=== PATIENT | female | born 1990 | race Caucasian/White ===

== ENCOUNTER 2016-07-19 19:35 | Emergency (ER) | payer BC ==
[2016-07-19] MEDS ORDERED: Sodium Chloride 0.9% 10 ML Syringe FLUSH PRN (19:40)
[2016-07-19 19:47] VITALS: BP 108/89
--- NOTE | 2016-07-19 20:03 | EDM.PDOC ---
ED HPI ENT - General Chief Complaint: ENT Problem Stated Complaint: TONSIL SURGERY/BLEEDING Time Seen by Provider: 07/19/16 19:39 Source of Information: Reports: Patient - History of Present Illness INITIAL COMMENTS - FREE TEXT/NARRATIVE: Patient is a 26-year-old female with history of status post tonsillectomy one week ago who presents to the ED complaining of bleeding from the posterior pharynx. States bleeding started just prior to arrival. She has filled up 3/4 12 oz styrofoam cup with giovani blood. Patient has had no complications post surgery up until today. She denies any additional past medical history including bleeding disorders. She has been utilizing hydrocodone and ibuprofen for pain. Surgery was performed by a ENT specialists in [facility]. She denies any additional complaints. Timing/Duration: Reports: Constant Severity: moderate Location: Reports: throat Quality: Reports: Other (bleeding) Treatments DIRECTOR IT: Reports: Other (see below) (none stated) - Related Data Allergies/ADRs: Allergies Allergy/AdvReac Type Severity Reaction Status Date / Time Penicillins Allergy Hives Verified 07/19/16 19:37 Home Meds: Home Meds . [Unable to Verify Home Med List] 07/19/16 [History] Past Medical History Other HEENT History: chronic sore throats Genitourinary History: Reports: None - Past Surgical History Head Surgeries/Procedures: Reports: None HEENT Surgical History: Reports: Oral surgery, Tonsillectomy Other Female Surgeries/Procedures: dashawn surgery for cosmetic purposes Social & Family History - Family History Family Medical History: Noncontributory - Tobacco Use Smoking Status *Q: Never Smoker Second Hand Smoke Exposure: No - Recreational Drug Use Recreational Drug Use: No ED ROS ENT - Review of Systems Review Of Systems: See Below Constitutional: Reports: decreased appetite. Denies: fever, chills HEENT: Reports: Throat pain, Throat swelling, Other (bleeding from posterior pharynx s/p tonsillectomy) Respiratory: Denies: Shortness of Breath GI/Abdominal: Denies: Nausea, Vomiting ED EXAM, ENT - Physical Exam Exam: See Below Exam Limited By: Other (coughing up blood, no airway compromise) General Appearance: alert, WD/WN, anxious Ears: hearing grossly normal Nose: normal inspection, normal mucousa, no blood Mouth/Throat: Bleeding, Other (unable to visualize posterior pharynx with bleeding present. ) Neck: normal inspection, supple Respiratory/Chest: no respiratory distress, lungs clear, normal breath sounds, no accessory muscle use Cardiovascular: normal peripheral pulses, regular rate, rhythm Neurological: alert, oriented, normal cognition Psychiatric: normal affect, normal mood Skin: Warm, Dry, Intact, Normal color Course - Vital Signs Last Recorded V/S: Last Vital Signs Temp 98.2 F 07/19/16 19:38 Pulse 124 H 07/19/16 19:38 Resp 24 H 07/19/16 19:38 BP 108/89 07/19/16 19:38 Pulse Ox 100 07/19/16 19:38 - Orders/Labs/Meds Orders: Active Orders 24 hr Category Date Time Status Peripheral IV Care [RC] . DIRECTED Care 07/19/16 19:40 Active TYPE AND SCREEN [BBK] Stat Lab 07/19/16 19:50 Received Sodium Chloride 0.9% [Saline Flush] Med 07/19/16 19:40 Active 10 ml FLUSH ASDIRECTED PRN Peripheral IV Insertion Adult [OM.PC] Stat Oth 07/19/16 19:40 Ordered Medication Orders Sodium Chloride (Saline Flush) 10 ml FLUSH ASDIRECTED PRN PRN Reason: Keep Vein Open Last Admin: 07/19/16 20:05 Dose: 10 ml Labs: Laboratory Tests 07/19/16 Range/Units 19:50 WBC 8.15 (3.98-10.04) K/mm3 RBC 4.31 (3.98-5.22) M/mm3 Hgb 12.8 (11.2-15.7) gm/L Hct 38.2 (34.1-44.9) % MCV 88.6 (79.4-94.8) fl MCH 29.7 (25.6-32.2) pg MCHC 33.5 (32.2-35.5) g/dl RDW Std Deviation 40.1 (36.4-46.3) fL Plt Count 248 (182-369) K/mm3 MPV 9.9 (9.4-12.3) fl Neut % (Auto) 56.9 (34.0-71.1) % Lymph % (Auto) 30.7 (19.3-51.7) % [place] % (Auto) 9.8 (4.7-12.5) % Eos % (Auto) 2.1 (0.7-5.8) Baso % (Auto) 0.4 (0.1-1.2) % Neut # (Auto) 4.64 (1.56-6.13) K/mm3 Lymph # (Auto) 2.50 (1.18-3.74) K/mm3 [place] # (Auto) 0.80 H (0.24-0.36) K/mm3 Eos # (Auto) 0.17 (0.04-0.36) K/mm3 Baso # (Auto) 0.03 (0.01-0.08) K/mm3 Meds: Medications Generic Name Dose Route Start Last Admin Trade Name Freq PRN Reason Stop Dose Admin Sodium Chloride 10 ml 07/19/16 19:40 07/19/16 20:05 Saline Flush FLUSH 10 ml ASDIRECTED PRN Administration Keep Vein Open - Re-Assessments/Exams Free Text/Narrative Re-Assessment/Exam: 07/19/16 19:41 patient has had approximately 250 mL of giovani red blood with onset of bleeding. Patient was instructed to utilize suction to clear blood from oral pharynx. Will move patient to trauma room so she can be closely monitored for airway compromise. Ordered IV to be established with CBC and type and screen lab work obtained. 1943 per nursing staff bleeding has decreased. 07/19/16 20:00 Patient moved to trauma room. Bleeding has subsided. She is spitting up clear secretions with intermittent blood tinged present. 07/19/16 21:05 Reassessment, bleeding has resolved. Examination did reveal clot to the left posterior pharynx with no active bleeding present. All other findings consistent with s/p tonsillectomy. Will discharge patient home with instructions as documented. Departure - Departure Time of Disposition: 21:10 Disposition: Home, Self-Care 01 Condition: fair Clinical Impression: S/P tonsillectomy, Hemorrhage following tonsillectomy Forms: ED Department Discharge Additional Instructions: As discussed continue taking oral pain medications as prescribed. Refrain from utilizing ibuprofen for the next 24-48 hours. Continue to drink copious amounts of water. Stating with a soft diet. Do not excessively clear your throat in fear of causing bleeding again. Please call your ENT specialist to discuss recent events and when followup should occur. Return back to the ED if experience any new or worsening symptoms. For constipation take one capful MiraLax every day while taking narcotic pain medications. - My Orders Last 24 Hours: My Active Orders 07/19/16 19:40 Peripheral IV Care [RC] . DIRECTED Sodium Chloride 0.9% [Saline Flush] 10 ml FLUSH ASDIRECTED PRN Peripheral IV Insertion Adult [OM.PC] Stat 07/19/16 19:50 TYPE AND SCREEN [BBK] Stat - Assessment/Plan Last 24 Hours: My Active Orders 07/19/16 19:40 Peripheral IV Care [RC] . DIRECTED Sodium Chloride 0.9% [Saline Flush] 10 ml FLUSH ASDIRECTED PRN Peripheral IV Insertion Adult [OM.PC] Stat 07/19/16 19:50 TYPE AND SCREEN [BBK] Stat
== END 2016-07-19 21:30 | disposition home or self-care (01) ==
LOC: JD.ED 19:35
DX: K91.841 Postprocedural hemorrhage of a digestive system organ or structure following other procedure (principal); Z98.890 Other specified postprocedural states; Z88.0 Allergy status to penicillin
CPT/HCPCS: 36415; 85025; 86850; 86900; 86901; 99284; J7050; 99282

== ENCOUNTER 2016-07-21 07:16 | Emergency (ER) | payer BC ==
--- NOTE | 2016-07-21 07:24 | EDM.PDOC ---
ED HPI ENT - General Chief Complaint: ENT Problem Stated Complaint: VOMITING BLOOD Time Seen by Provider: 07/21/16 07:30 Source of Information: Reports: Patient History Limitations: Reports: No limitations - History of Present Illness INITIAL COMMENTS - FREE TEXT/NARRATIVE: 26 year old female presents to the ED with vomiting of blood pressure red blood mixed with old dark blood. She is tonsillectomy carried out a week ago up in [place]. She presented 2 days ago with the left tonsillar fossa bleed that stopped on its own. At present she is very nauseated and has minimal active bleeding from the left tonsillar area. She is pallid in appearance and quite woozy. Symptom Onset Date: 07/21/16 (Awoke with nausea vomiting of dark old blood and did have some prevent blood as well per oral.) Timing/Duration: Reports: Minutes:, Sudden onset Severity: moderate Location: Reports: mouth Quality: Reports: Same as previous episode Improves with: Reports: None Worsens with: Reports: None Associated Symptoms: Reports: syncope, weakness. Denies: chest pain, cough, sputum, fever/chills, diaphoresis, malaise, loss of appetite, nausea/vomiting Treatments PHOTOGRAPHY AND PRINTS CURATOR: Reports: Other (see below) ( none) - Related Data Allergies/ADRs: Allergies Allergy/AdvReac Type Severity Reaction Status Date / Time Penicillins Allergy Hives Verified 07/21/16 07:27 Home Meds: Home Meds Ondansetron [Zofran ODT] 4 mg PO Q6H #5 tab.dis 07/21/16 [Rx] Past Medical History Other HEENT History: chronic sore throats Genitourinary History: Reports: None - Past Surgical History Head Surgeries/Procedures: Reports: None HEENT Surgical History: Reports: Oral surgery, Tonsillectomy Other Female Surgeries/Procedures: dashawn surgery for cosmetic purposes Social & Family History - Family History Family Medical History: Noncontributory - Tobacco Use Smoking Status *Q: Never Smoker Second Hand Smoke Exposure: No - Recreational Drug Use Recreational Drug Use: No - Living Situation & Occupation Occupation: employed ED ROS ENT - Review of Systems Review Of Systems: See Below Constitutional: Reports: no symptoms, weakness, fatigue, decreased appetite HEENT: Reports: Throat pain ( post tonsillectomy one week ago.) Respiratory: Reports: No Symptoms Cardiovascular: Reports: No symptoms Endocrine: Reports: no symptoms GI/Abdominal: Reports: Hematemesis, Nausea, Vomiting (Ileus) : Reports: no symptoms Musculoskeletal: Reports: no symptoms Skin: Reports: no symptoms Neurological: Reports: Dizziness Hematologic/Lymphatic: Reports: no symptoms ED EXAM, ENT - Physical Exam Exam: See Below Exam Limited By: No limitations General Appearance: alert, WD/WN, moderate distress (Appears quite pallid.), other (Resting heart rate is 94 respiratory 24 per minute. BP 91 and 69.) Eye Exam: bilateral eye: other (Margins are mildly prominent.) Mouth/Throat: Pharyngeal erythema ( No active bleeding is appreciated at this time), Throat pain, Other (There is a mild amount of clot within the left tonsillar fossa.). No: Peritonsillar mass, Teething Head: atraumatic, normocephalic Neck: normal inspection, supple, non-tender, full range of motion Respiratory/Chest: no respiratory distress, lungs clear, normal breath sounds, no accessory muscle use, respiratory distress Cardiovascular: normal peripheral pulses, regular rate, rhythm, no edema, no gallop, no murmur (Mild tachypnea partly due to anxiety) GI/Abdominal: normal bowel sounds, soft, non tender, no organomegaly Skin: Warm, Dry, Intact, Pallor (Moderate) Course - Vital Signs Last Recorded V/S: Last Vital Signs Temp 36.7 C 07/21/16 09:35 Pulse 82 07/21/16 09:35 Resp 14 07/21/16 09:35 BP 95/55 L 07/21/16 09:35 Pulse Ox 99 07/21/16 09:35 Orthostatic Blood Pressure [ 61/49 Standing] Orthostatic Blood Pressure [ 94/63 Supine] - Orders/Labs/Meds Orders: Active Orders 24 hr Category Date Time Status Dextrose 5%-0.9% NaCl [Dextrose 5%-Normal Saline] 1,000 Med 07/21/16 07:45 Active ml IV ASDIRECTED Dextrose 5%-0.9% NaCl [Dextrose 5%-Normal Saline] 1,000 Med 07/21/16 09:45 Active ml IV ASDIRECTED Lactated Ringers [Ringers, Lactated] 1,000 ml Med 07/21/16 11:00 Active IV ASDIRECTED Medication Orders Dextrose/Sodium Chloride (Dextrose 5%-Normal Saline) 1,000 mls @ 999 mls/hr IV ASDIRECTED CHEPE Last Admin: 07/21/16 07:46 Dose: 999 mls/hr Dextrose/Sodium Chloride (Dextrose 5%-Normal Saline) 1,000 mls @ 999 mls/hr IV ASDIRECTED CHEPE Last Admin: 07/21/16 09:51 Dose: 999 mls/hr Lactated Ringer's (Ringers, Lactated) 1,000 mls @ 999 mls/hr IV ASDIRECTED CHEPE Last Admin: 07/21/16 10:57 Dose: 999 mls/hr Labs: Laboratory Tests 07/21/16 07/21/16 07/21/16 Range/Units 07:30 07:30 07:30 WBC 10.68 H (3.98-10.04) K/mm3 RBC 3.67 L (3.98-5.22) M/mm3 Hgb 11.0 L (11.2-15.7) gm/L Hct 33.0 L (34.1-44.9) % MCV 89.9 (79.4-94.8) fl MCH 30.0 (25.6-32.2) pg MCHC 33.3 (32.2-35.5) g/dl RDW Std Deviation 41.4 (36.4-46.3) fL Plt Count 268 (182-369) K/mm3 MPV 9.8 (9.4-12.3) fl Neutrophils % (Manual) 76 H (40-60) % Band Neutrophils % 1 (0-10) % Lymphocytes % (Manual) 16 L (20-40) % Atypical Lymphs % 0 % Monocytes % (Manual) 6 (2-10) % Eosinophils % (Manual) 1 (0.7-5.8) % Basophils % (Manual) 0 L (0.1-1.2) Platelet Estimate Adequate RBC Morph Comment Normal PT 10.8 (8.0-13.0) SECONDS INR 0.99 Sodium 138 (136-145) mEq/L Potassium 3.9 (3.5-5.1) mEq/L Chloride 101 (98-107) mEq/L Carbon Dioxide 26 (21-32) mEq/L Anion Gap 14.9 (5-15) BUN 12 (7-18) mg/dL Creatinine 0.9 (0.55-1.02) mg/dL Est Cr Clr Drug Dosing 77.32 mL/min Estimated GFR (MDRD) > 60 (>60) mL/min BUN/Creatinine Ratio 13.3 L (14-18) Glucose 154 H (74-106) mg/dL Calcium 9.0 (8.5-10.1) mg/dL Total Bilirubin 0.2 (0.2-1.0) mg/dL AST 108 H (15-37) U/L ALT 98 H (14-59) U/L Alkaline Phosphatase 61 (46-116) U/L Total Protein 7.6 (6.4-8.2) g/dl Albumin 3.8 (3.4-5.0) g/dl Globulin 3.8 gm/dL Albumin/Globulin Ratio 1.0 (1-2) Meds: Medications Generic Name Dose Route Start Last Admin Trade Name Maneq PRN Reason Stop Dose Admin Dextrose/Sodium Chloride 1,000 mls @ 999 mls/hr 07/21/16 07:45 07/21/16 07:46 Dextrose 5%-Normal Saline IV 999 mls/hr ASDIRECTED CHEPE Administration Dextrose/Sodium Chloride 1,000 mls @ 999 mls/hr 07/21/16 09:45 07/21/16 09:51 Dextrose 5%-Normal Saline IV 999 mls/hr ASDIRECTED CHEPE Administration Lactated Ringer's 1,000 mls @ 999 mls/hr 07/21/16 11:00 07/21/16 10:57 Ringers, Lactated IV 999 mls/hr ASDIRECTED CHEPE Administration Discontinued Medications Generic Name Dose Route Start Last Admin Trade Name Briseyda PRN Reason Stop Dose Admin Dexamethasone 8 mg 07/21/16 09:01 07/21/16 09:51 Dexamethasone IV 07/21/16 09:02 Not Given ONETIME ONE Dexamethasone 8 mg 07/21/16 09:30 07/21/16 09:27 Dexamethasone IV 07/21/16 09:31 8 mg ONETIME ONE Administration Hydromorphone HCl 0.5 mg 07/21/16 07:39 07/21/16 08:36 Dilaudid IVPUSH 07/21/16 07:40 0.25 mg ONETIME ONE Administration Hydromorphone HCl 0.25 mg 07/21/16 10:58 07/21/16 11:03 Dilaudid IVPUSH 04/12/17 10:59 0.25 mg ONETIME ONE Administration Lidocaine/Tetracaine 3 ml 07/21/16 07:39 07/21/16 10:03 Let Soln TOP 07/21/16 07:40 Not Given ONETIME ONE Metoclopramide HCl 7.5 mg 07/21/16 07:39 07/21/16 07:55 Reglan IVPUSH 07/21/16 07:40 7.5 mg ONETIME ONE Administration Ondansetron HCl 4 mg 07/21/16 09:05 07/21/16 10:03 Zofran IVPUSH 07/21/16 09:06 Not Given ONETIME ONE - Radiology Interpretation Free Text/Narrative:: 26-year-old female presents the ED with acute onset of vomiting blood that appears to be secondary to tonsillar hemorrhage. She had a tonsillectomy carried out a week ago today. She had the bleeding from the left tonsillar fossa 2 days ago which subsided on its own. Overnight it appears that the bleeding once again started and she vomited up blood this morning remains very nauseated. Clots and old blood that she vomited up with a mild amount of bright red blood. Appears to be coming from the left tonsillar fossa on examination but the bleeding is for the most part stopped at present. Plan IV D5 normal saline at open. Routine labs including PT/INR. Will try to cauterize the area once Dilaudid 0.25mg and Reglan 7.5mg at that time to work. - Re-Assessments/Exams Free Text/Narrative Re-Assessment/Exam: 07/21/16 09:26 Has completed a liter of IV fluids and is feeling better. Going to give her dexamethasone 8 mg IV and also relieving some of the swelling in her throat since she is still having some much pain. He is unable to swallow the hydrocodone tablet that she's not finding effectual anyway. I will switch it to hydrocodone Tylenol suspension 7.5 mg of hydrocodone with 325 mg of Tylenol. This comes in 15 male aliquots. She may use 15mls q. 4-6 hours. For pain relief. Prescribed 300 mils. Also Zofran 4 mg under the tongue 246 hours. For nausea relief. Nothing was done with a left tonsillar fossa as there is one small clot in the upper medial pole of the tonsillar fossa with no active bleeding I therefore did not disturb the clot. To return to the ED if any further bleeding occurs. 07/21/16 09:41 was restarted up to Gatorade to go for her she became orthostatic BP P. 61/40. Heart rate jumped up into the 140s. Therefore she will require another liter of IV fluids. Unfortunately the IV had been removed and was therefore going to have to be restarted. 07/21/16 10:50 Has completed second liter of D5 normal saline and orthostatics to remain somewhat positive with a heart rate of 124 when she stands up. I'm going to go ahead and give her third unit liter of fluid. It'll be likely has lactate at this time 07/21/16 10:59 is having a bit more pain at this time. Will give her another small dose of Dilaudid 0.25 mg IV. This is what she get the first dose as well since her blood pressure was so low. Departure - Departure Time of Disposition: 12:28 Disposition: Home, Self-Care 01 Condition: fair Clinical Impression: Post tonsillectomy secondary hemorrhage, Post-operative pain Prescriptions: Ondansetron [Zofran ODT] 4 mg PO Q6H #5 tab.dis Instructions: Tonsillectomy, Adult, Care After Referrals: PCP,None [Primary Care Provider] - Forms: Return to Work/School Form Additional Instructions: Evaluation in the emergency room this morning in regards to acute onset of nausea and vomiting of blood that appears to have most the throat and into the stomach overnight from bleeding left tonsillar fossa. Today is day 7 postop tonsillectomy. Still having significant pain and difficulty swallowing. Examination does shows a clot that has formed in the left tonsillar fossa with no active bleeding at this time. Decision made therefore not to disturb the clot as there is no active bleeding at this time. You're treated with 3 liters of IV fluids and antinausea medication and pain medication while in the ED. Treatment at home is to use hydrocodone with Tylenol suspension 7.5 mg per 15 mils. May use 15mls every 4-6 hours as necessary for pain relief. Try and take it with as little bit of something in her stomach such as yogurt,a milkshake etc. Zofran may be used under the tongue every 4-6 hours as necessary to relieve any nausea. Of course return to the emergency room if any further bleeding occurs from the left tonsillar fossa. Of note the area will be nearly completely healed in 3 more days. - My Orders Last 24 Hours: My Active Orders 07/21/16 07:45 Dextrose 5%-0.9% NaCl [Dextrose 5%-Normal Saline] 1,000 ml IV ASDIRECTED 07/21/16 09:45 Dextrose 5%-0.9% NaCl [Dextrose 5%-Normal Saline] 1,000 ml IV ASDIRECTED 07/21/16 11:00 Lactated Ringers [Ringers, Lactated] 1,000 ml IV ASDIRECTED - Assessment/Plan Last 24 Hours: My Active Orders 07/21/16 07:45 Dextrose 5%-0.9% NaCl [Dextrose 5%-Normal Saline] 1,000 ml IV ASDIRECTED 07/21/16 09:45 Dextrose 5%-0.9% NaCl [Dextrose 5%-Normal Saline] 1,000 ml IV ASDIRECTED 07/21/16 11:00 Lactated Ringers [Ringers, Lactated] 1,000 ml IV ASDIRECTED
[2016-07-21] MEDS ORDERED: Lidocaine/EPINEPHrine/Tetracaine Soln 1 ML TOP ONE (07:39)
[2016-07-21] MEDS ORDERED: Metoclopramide 10 MG/2 ML SDV IVPUSH ONE (07:39)
[2016-07-21] MEDS ORDERED: HYDROmorphone 0.5 MG/0.5 ML Syringe IVPUSH ONE ×2 (07:39→10:58)
[2016-07-21] MEDS ORDERED: Dextrose 5%-0.9% NaCl 1,000 ML IV SCH ×2 (07:45→09:45)
[2016-07-21] MEDS ORDERED: Dexamethasone 4 MG/ML 5 ML MDV IV ONE (09:01)
[2016-07-21] MEDS ORDERED: Ondansetron 4 MG/2 ML SDV IVPUSH ONE (09:05)
[2016-07-21] MEDS ORDERED: Dexamethasone 4 MG/ML SDV IV ONE (09:30)
[2016-07-21 09:53] VITALS: BP 95/55
[2016-07-21] MEDS ORDERED: Lactated Ringers 1,000 ML IV SCH (11:00)
== END 2016-07-21 12:30 | disposition home or self-care (01) ==
LOC: JD.ED 07:16
DX: K91.841 Postprocedural hemorrhage of a digestive system organ or structure following other procedure (principal); Y65.8 Other specified misadventures during surgical and medical care; G89.18 Other acute postprocedural pain; Z88.0 Allergy status to penicillin
CPT/HCPCS: 36415; 80053; 85025; 85610; 96361; 96374; 96375; 99284; J1100; J1170; J2765; J7042; J7120